=== PATIENT | male | born 1975 | race Caucasian/White ===

== ENCOUNTER 2020-01-15 01:54 | Emergency (ER) | payer OTHER ==
[~2020-01-15] VITALS: Ht 175.3 cm; Wt 86.2 kg
[2020-01-15 02:04] VITALS: Ht 175.3 cm; Wt 86.2 kg
[2020-01-15 05:00] VITALS: BP 133/90
== END 2020-01-15 05:00 | disposition home or self-care (01) ==
LOC: ED 01:54
DX: S16.1XXA Strain of muscle, fascia and tendon at neck level, initial encounter (principal); S39.012A Strain of muscle, fascia and tendon of lower back, initial encounter; S63.610A Unspecified sprain of right index finger, initial encounter; V49.9XXA Car occupant (driver) (passenger) injured in unspecified traffic accident, initial encounter; Y93.I9 Activity, other involving external motion; Y92.413 State road as the place of occurrence of the external cause; Y99.8 Other external cause status
CPT/HCPCS: Q0092